=== PATIENT | male | born 1995 | race American Indian/Alaskan Native ===

== ENCOUNTER 2016-10-22 09:31 | Emergency (ER) | payer OTHER ==
[2016-10-22 09:41] VITALS: BP 132/82
--- NOTE | 2016-10-22 09:55 | Emergency Department Report ---
HPI - General Chief Complaint: Urogenital-Male Time Seen by Provider: 10/22/16 09:53 - HPI HPI: Patient here reports left breast lump that he notices more than a week. He says it's a can of October 24. Patient said he's had similar episode when he was a child and the doctor told him and his mom that he probably has a little bit too much female hormones. Denies any change in skin. Eyes any nipple discharge. Denies any redness surrounding twice. He did not take any over-the- counter medication. Denies any fever or chills. Denies any family history of cancer. Denies any chest pain or shortness of breath. ED Past Medical Hx - Past Medical History Previous Medical History?: No - Surgical History Past Surgical History?: Yes Additional Surgical History: PE tubes, Right elbow surgery, Left wrist surgery - Family History Family history: no significant - Social History Smoking Status: Current Some Day Smoker Substance Use Type: Alcohol, Marijuana - Medications Home Medications: Home Medications Medication Instructions Recorded Confirmed Last Taken Type Cephalexin [Keflex] 500 mg PO Q8HR #30 cap 10/22/16 Unknown Rx Naproxen [Naprosyn TAB] 500 mg PO BID #5 tablet 10/22/16 Unknown Rx ED Review of Systems ROS: Stated complaint: CHEST PAIN Other details as noted in HPI Comment: All other systems reviewed and negative Constitutional: denies: chills, fever Respiratory: no symptoms reported Cardiovascular: denies: chest pain, palpitations, edema, syncope Gastrointestinal: denies: abdominal pain, nausea, vomiting, diarrhea Musculoskeletal: denies: back pain, arthralgia Skin: other (reports lump to left breast). denies: rash Neurological: denies: headache Physical Exam - Physical Exam Vital Signs: Vital Signs 10/22/16 09:36 Temperature 98.2 F Pulse Rate 65 Respiratory 18 Rate Blood Pressure 132/82 O2 Sat by Pulse 100 Oximetry General: This is a 21-year-old male well-nourished well-developed in no acute distress. Physical Exam: Head: Normocephalic atraumatic Neck: Supple, no C-spine tenderness, no tracheal deviation. Nontender to palpate. no adenopathy. Breast exam: Bilateral breasts symmetrical. Skin around breast area Nipple normal appearance. No nipple discharge. No axilla adenopathy. Palpated small less than 2 mm lump around left nipple on the left area areola. No redness, induration. Tender to palpate Eyes: Bilateral pupils equal and reactive to light, bilateral EOM intact. Bilateral sclera and conjunctiva without injection. Normal accommodation Abdomen: Soft, nontender to palpate in all quadrants. No guarding or rebound tenderness and no CVA tenderness. Lungs: clear to auscultate bilaterally no rhonchi wheezes or rales. Normal work of breathing extremity; No CCE. +2 pulses. No neurovascular compromise Cardiovascular: S1-S2, regular rate rhythm. No murmurs. Skin: clean Dry and intact no rash no lesions Psych: Normal mood and behavior ED Course Vital Signs 10/22/16 09:36 Temperature 98.2 F Pulse Rate 65 Respiratory 18 Rate Blood Pressure 132/82 O2 Sat by Pulse 100 Oximetry - Reevaluation(s) Reevaluation #1: 10/22/16 11:20 Uneventful ED stay ED Medical Decision Making - Medical Decision Making Case discussed with Dr. Sheikh ED course: Patient here complaining of lump to left breast. He said similar episode in the past. I discussed with patient that I'll treat him with antibiotic and anti-inflammatory for blockage of and glands to breast area. I discussed with him that he will also need to follow-up with primary care physician to get recommendations for mammogram. Patient voiced understanding of need for follow-up. Patient stable and discharged home with prescription for naproxen and Keflex. Critical care attestation.: If time is entered above; I have spent that time in minutes in the direct care of this critically ill patient, excluding procedure time. ED Disposition Clinical Impression: Mastalgia, Breast lump, Encounter for smoking cessation counseling Disposition: DISCHARGED TO HOME OR SELFCARE Is pt being admited?: No Does the pt Need Aspirin: No Condition: Stable Instructions: Breast Mass (ED), How to Stop Smoking (ED), Mammogram (ED) Additional Instructions: Please follow up with Medical Center's that you were referred to for evaluation and further treatment of breast lump. Please refer to discharge instruction paperwork for clinic information. Please see medication as prescribed. Call clinics today to schedule an appointment for follow-up visit. See information on mammogram Prescriptions: Cephalexin [Keflex] 500 mg PO Q8HR #30 cap Naproxen [Naprosyn TAB] 500 mg PO BID #5 tablet Referrals: [facility] [Outside] - 10/24/16 [facility] [place] [Outside] - 10/24/16 Forms: Work/School Release Form(ED)
== END 2016-10-22 11:37 | disposition home or self-care (01) ==
LOC: ED 09:31
DX: N64.4 Mastodynia (principal); F17.200 Nicotine dependence, unspecified, uncomplicated; F12.10 Cannabis abuse, uncomplicated
CPT/HCPCS: 99282